=== PATIENT | female | born 1955 | race American Indian/Alaskan Native ===

== ENCOUNTER 2022-03-03 20:42 | Emergency (ER) | payer OTHER ==
[~2022-03-03 20:42] MED LIST: LIPITOR10 MG PO
[2022-03-03 21:01] LABS: BASOPHIL 1.3 % (0-2); EOSINOPHIL 3.2 % (0-7); HCT 38.4 % (37.0-47.0); HGB 13.5 g/dl (12.5-16.0); LYMPHOCYTE 42.7 % (15-48); MCH 29.2 pg (25.0-31.0); MCHC 35.2 g/dL (32.0-36.0); MCV 82.9 fL (78.0-100.0); MONOCYTE 6.5 % (0-12); MPV 9.3 fL (6.0-9.5); NEUTROPHIL 45.4 % (41-80); NRBC 0; PLT 395 K/uL (150-400); RBC 4.63 M/uL (4.20-5.40); RDW 12.2 % (11.5-14.0); WBC 11.6 K/uL (4.0-10.5)
[2022-03-03 21:09] LABS: INR 0.94 (0.9-1.2); PROTHROMBIN TIME 12.3 SECONDS (11.9-13.9); PTT 26.9 SECONDS (24.9-34.6)
[2022-03-03 21:19] LABS: BILIRUBIN NEGATIVE (NEGATIVE); BLOOD 1+ Ery/uL (NEGATIVE); CLARITY CLEAR (CLEAR); COLOR YELLOW (YELLOW); GLUCOSE (U) NORMAL (NORMAL); LEUKOCYTES TRACE Leu/uL (NEGATIVE); NITRITE NEGATIVE (NEGATIVE); PROTEIN NEGATIVE (NEGATIVE); SPECIFIC GRAVITY 1.025 (1.001-1.030); UROBILINOGEN 0.2 mg/dL (0.2-1.0)
[2022-03-03 21:26] LABS: ALBUMIN 4.1 g/dL (3.4-5.0); BILIRUBIN - TOTAL 0.3 mg/dL (0.2-1.0); CREATININE 0.69 mg/dL (0.51-0.95); FT4 (FREE T4) 1.2 ng/dL (0.76-1.46); GLOBULIN (CALCULATION) 3.8 g/dL; MAGNESIUM 1.9 mg/dL (1.8-2.4); POTASSIUM 2.8 mmol/L (3.5-5.1); TOTAL PROTEIN 7.9 g/dL (6.4-8.2)
[2022-03-03 21:39] LABS: BACTERIA 1+
[2022-03-03 21:53] LABS: CORONAVIRUS 2019 SARS-COV-2 NEGATIVE (NEGATIVE); INFLUENZA A NAA NEGATIVE (NEGATIVE)
== END 2022-03-03 23:31 | disposition home or self-care (01) ==
LOC: FER 20:42
PROVIDERS: Internal Medicine
DX: R55 Syncope and collapse (principal); T50.905A Adverse effect of unspecified drugs, medicaments and biological substances, initial encounter; E87.1 Hypo-osmolality and hyponatremia; E87.6 Hypokalemia; E03.8 Other specified hypothyroidism; I10 Essential (primary) hypertension; E78.5 Hyperlipidemia, unspecified; Z20.822 Contact with and (suspected) exposure to COVID-19; Z79.899 Other long term (current) drug therapy
CPT/HCPCS: 36415; 70450; 71250; 80053; 81001; 83735; 83880; 84145; 84439; 84443; 84484; 85025; 85610; 85730; 93005; J3475; J7050; J7120; U0002